=== PATIENT | female | born 1955 | race Caucasian/White ===

== ENCOUNTER 2018-10-30 18:13 | Emergency (ER) | payer OTHER ==
[~2018-10-30] VITALS: Ht 162.6 cm; Wt 77.6 kg
[2018-10-30 18:34] LABS: ABSOLUTE BASOPHILS 0.1 thou/uL (0.0-0.2); ABSOLUTE EOSINOPHILS 0.7 thou/uL (0.0-0.7); ABSOLUTE LYMPHOCYTES 3.4 thou/uL (0.8-5.3); ABSOLUTE MONOCYTES 0.7 thou/uL (0.0-1.2); ABSOLUTE NEUTROPHILS 4.9 thou/uL (1.6-8.1); BASOPHILS 0.8 %; EOSINOPHILS 6.7 %; HEMOGLOBIN 14.4 gm/dL (12.0-15.0); LYMPHOCYTES 34.6 %; MCH 30.5 pg (26.0-34.0); MCHC 34.3 g/dL (28.0-37.0); MONOCYTES 6.9 %; MPV 8.5 fl. (7.2-11.1); NUCLEATED RBCS 0 /100WBC; PLATELET COUNT* 341 thou/uL (150-400); RBC 4.71 mil/uL (4.20-5.00); RDW-CV 12.8 % (10.5-14.5); WBC 9.7 thou/uL (4.0-11.0)
[2018-10-30 18:43] LABS: ANION GAP 8 mmol/L (7-16); APTT 24.5 Seconds (25.0-31.3); BUN 18 mg/dL (7-18); CALCIUM 9.2 mg/dL (8.5-10.1); CHLORIDE 104 mmol/L (98-107); CO2 28 mmol/L (21-32); GLUCOSE 99 mg/dL (70-99); POTASSIUM 3.9 mmol/L (3.5-5.1); SODIUM 140 mmol/L (136-145)
[2018-10-30 18:54] LABS: ALBUMIN 3.8 g/dL (3.4-5.0); ALKALINE PHOSPHATASE 68 U/L (46-116); NT-PRO BRAIN NAT PEPTIDE 11 pg/mL (<300); SGOT 18 U/L (15-37); SGPT 28 U/L (30-65); TOTAL BILIRUBIN 0.3 mg/dL (<0.1-1.0); TOTAL PROTEIN 7.6 g/dL (6.4-8.2)
[2018-10-30 19:11] LABS: TROPONIN-I LEVEL <0.06 ng/mL (<0.06)
[2018-10-30] MEDS ORDERED: MEDROLDOSEPACK PO (20:01)
[2018-10-30] MEDS ORDERED: TESSALON PERLE100 M1 PO (20:01)
[2018-10-30] MEDS ORDERED: NEBULIZER MISCELL (20:01)
[2018-10-30] MEDS ORDERED: ALBUTEROL2.5 MG/31 INH (20:01)
[2018-10-30 20:27] VITALS: BP 132/75
--- NOTE | 2018-10-31 08:59 | EKG ---
[place] [address] ELECTROCARDIOGRAM REPORT Name: EVANGELIST HERNANDEZ Jorge Room: [facility]#: [id number] Admission: 10/30/18 Attend Phys: Discharge: 10/30/18 Date of : 57 Report #: [id number] THIS REPORT FOR: //name// [facility] ED Test Date: 2018-10-30 Test Time: 18:18:12 Pat Name: EVANGELIST HERNANDEZ Department: Room: Gender: F Shank Sander: [facility] : 1955 Requested By: Dean Guillen Order Number: [id number] MD: Henry Gonzalez Measurements Intervals Laura Rate: 93 P: 73 AR: 128 QRS: 73 QRSD: 91 T: 57 QT: 364 QTc: 453 Interpretive Statements Sinus rhythm No previous ECG available for comparison Electronically Signed On 10-31-2018 8:59:31 [employer] by Henry Gonzalez [email or web address] <ELECTRONICALLY SIGNED> By: Henry Gonzalez MD, [facility] 10/31/18 0859 1818 1818 Henry Gonzalez MD, FACC /EPI
== END 2018-10-30 20:28 | disposition home or self-care (01) ==
LOC: M.ERS 18:13
PROVIDERS: Nurse Practitioner Family
DX: J40 Bronchitis, not specified as acute or chronic (principal)